=== PATIENT | female | born 1955 | race Caucasian/White ===

== ENCOUNTER 2025-05-17 10:35 | Emergency (ER) | payer MEDICARE, OTHER ==
[~2025-05-17] VITALS: Ht 162.6 cm; Wt 71.7 kg
[~2025-05-17 10:35] MED LIST: ARIMIDEX1 MG PO; BIOTIN5 MG PO; CIPROFLOXACIN750 MG PO; COLESTID1 GM PO; FENOFIBRATE145 MG PO; HUMALOG100 UNIT/2 SUB-Q; LAMICTAL XR200 MG PO; LANTUS100 UNITS/ SUB-Q; LYRICA200 MG PO; METRONIDAZOLE500 MG PO; NEXIUM40 MG PO; OXYCODONE HCL5 M1 PO; ROPINIROLE HCL1 MG PO; VENLAFAXINE HC225 MG PO; VITAMIN B122500 MCG PO
--- OUTSIDE RECORDS SUMMARY | 2025-05-17 10:42 | XMS ---
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 Harjeet has no Care Guidelines for this patient. Shahida VISIT COUNT (12 MO.) 3 [facility] 2 [facility] 1 Lise Campa TOTAL 6 NOTE: Visits indicate total known visits. ED/C VISIT TRACKING (12 MO.) 05/17/2025 10:36 [facility] Maycol Miguel [place] TYPE: Emergency COMPLAINT: - BACK PAIN 05/09/2025 07:16 [facility] Andre TYPE: Emergency COMPLAINT: - LT FOOT PAIN 12/23/2024 11:04 Lise CURIEL TYPE: Emergency DIAGNOSES: - Perforation of intestine (nontraumatic) - Abdominal Pain - ischemic bowel 12/23/2024 05:43 [facility] TYPE: Emergency COMPLAINT: - N/V/D, Abd Pain X 3 days DIAGNOSES: - Nausea with vomiting, unspecified - Other hallucinations 09/04/2024 08:24 [facility] TYPE: Emergency COMPLAINT: - abdominal pain DIAGNOSES: - Noninfective gastroenteritis and colitis, unspecified 08/01/2024 21:43 [facility] TYPE: Emergency COMPLAINT: - fall DIAGNOSES: - Sprain of unspecified part of left wrist and hand, initial encounter INPATIENT VISIT TRACKING (12 MO.) 05/09/2025 12:31 [facility] Andre TYPE: Medical Surgical COMPLAINT: - DIABETIC FOOT INFECTION DIAGNOSES: - Acquired absence of both cervix and uterus - Acquired absence of both cervix and uterus - Acquired absence of other specified parts of digestive tract - Acquired absence of other specified parts of digestive tract - Acquired absence of right foot - Acquired absence of right foot - Allergy status to narcotic agent - Allergy status to narcotic agent - Allergy status to other drugs, medicaments and biological substances - Allergy status to other drugs, medicaments and biological substances - Allergy status to penicillin - Allergy status to penicillin - Do not resuscitate - Do not resuscitate - Family history of diabetes mellitus - Family history of diabetes mellitus - Hypomagnesemia - Hypomagnesemia - 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 - jail (current) use of insulin - Lymphangitis - Lymphangitis - Non-pressure chronic ulcer of other part of left foot limited to breakdown of skin - Non-pressure chronic ulcer of other part of left foot limited to breakdown of skin - Other fpc (current) drug therapy - Other salvage determiner (current) drug therapy - Pain in left foot - Personal history of malignant neoplasm of breast - Personal history of malignant neoplasm of breast - Type 2 diabetes mellitus with foot ulcer - Type 2 diabetes mellitus with foot ulcer - Type 2 diabetes mellitus with foot ulcer 12/23/2024 11:04 Lise CURIEL TYPE: Medical Surgical DIAGNOSES: - Acidosis, unspecified - Perforation of intestine (nontraumatic) - Perforation of intestine (nontraumatic) - Sepsis, unspecified organism - Severe sepsis with septic shock - Unspecified abdominal pain - Vascular disorder of intestine, unspecified [email or web address]
[2025-05-17] MEDS ORDERED: TRIMETHOPRIM/SULFAMETHOXAZOLE 1 EA TAB PO ONE (12:30)
[2025-05-17] MEDS ORDERED: BACTRIM DS TAB1 EACH PO (12:31)
[2025-05-17] MEDS ORDERED: TRAMADOL HCL50 MG PO (12:40)
[2025-05-17 12:45] VITALS: BP 110/76
== END 2025-05-17 13:06 | disposition home or self-care (01) ==
LOC: ED 10:35
DX: L08.9 Local infection of the skin and subcutaneous tissue, unspecified (principal); E11.628 Type 2 diabetes mellitus with other skin complications; Z88.1 Allergy status to other antibiotic agents; Z88.5 Allergy status to narcotic agent; Z79.899 Other long term (current) drug therapy
CPT/HCPCS: 93971; 99283-25; A9270

== ENCOUNTER 2025-06-06 18:37 | Emergency (ER) | payer MEDICARE, OTHER ==
[~2025-06-06] VITALS: Ht 162.6 cm; Wt 68.8 kg
[~2025-06-06 18:37] MED LIST changes: +BACTRIM DS TAB1 EACH PO; +TRAMADOL HCL50 MG PO
--- OUTSIDE RECORDS SUMMARY | 2025-06-06 18:43 | XMS ---
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 Harjeet has no Care Guidelines for this patient. Shahida [facility] (12 MO.) [facility] [place] [address] Lise Campa TOTAL 7 NOTE: Visits indicate total known visits. ED/C VISIT TRACKING (12 MO.) 06[facility]06/2025 18:37 [facility] COMPLAINT: - STROKE SYMPTOMS 05/17/2025 10:36 [facility]ais [place] TYPE: Emergency COMPLAINT: - BACK PAIN DIAGNOSES: - Allergy status to narcotic agent - Allergy status to other antibiotic agents - Local infection of the skin and subcutaneous tissue, unspecified - Other senior living (current) drug therapy - Pain in left lower leg - Pain in left toe(s) - Type 2 diabetes mellitus with other skin complications 05/09/2025 07:16 [facility] [place] TYPE: Emergency COMPLAINT: - LT FOOT PAIN 12/23/2024 11:04 Lise CURIEL TYPE: Emergency DIAGNOSES: - Perforation of intestine (nontraumatic) - Abdominal Pain - ischemic bowel 12/23/2024:43 [facility] TYPE: Emergency COMPLAINT: - N/V/D, Abd Pain X 3 days DIAGNOSES: - Nausea with vomiting, unspecified - Other hallucinations 09/04/2024 08:24 [facility] TYPE: Emergency COMPLAINT: - abdominal pain DIAGNOSES: - Noninfective gastroenteritis and colitis, unspecified 08/01/2024 21:43 [facility] TYPE: Emergency COMPLAINT: - fall DIAGNOSES: - Sprain of unspecified part of left wrist and hand, initial encounter INPATIENT VISIT TRACKING (12 MO.) 05/09/2025 12:31 [facility] [place] TYPE: Medical Surgical COMPLAINT: - DIABETIC FOOT [...] diabetes mellitus - Hypomagnesemia - Hypomagnesemia - correction (current) use of insulin - correction (current) use of insulin - Lymphangitis - Lymphangitis - Non-pressure chronic ulcer of other part of left foot limited to breakdown of skin - Non-pressure chronic ulcer of other part of left foot limited to breakdown of skin - Other senior living (current) drug therapy - Other terminal manager (current) drug therapy - Pain in left [...] pain - Vascular disorder of intestine, unspecified [email or web address]
[2025-06-06] MEDS ORDERED: ACETAMINOPHEN 500 MG TAB PO ONE (19:00)
[2025-06-06] MEDS ORDERED: SODIUM CHLORIDE 0.9% 1,000 ML IV ONE (19:00)
[2025-06-06 19:11] LABS: BASOPHILS 0.3 % (0.1-1.2); EOSINOPHILS 0.2 % (0.7-5.8); LYMPHOCYTES 9.8 % (19.3-51.7); MCH 30.0 PG (25.6-32.2); MCHC 34.0 g/dL (32.2-35.5); MCV 88.0 fL (79.4-94.8); MONOCYTES 5.1 % (4.7-12.5); NEUTROPHILS 84.2 % (34.0-71.1); RBC 4.24 M/uL (3.93-5.22)
[2025-06-06 19:27] LABS: INR 1.11 (0.80-1.30); PROTIME 13.6 Sec (11.2-14.2)
[2025-06-06 19:30] LABS: ALT (SGPT) 23.0 U/L (14-59); AST (SGOT) 37.0 U/L (15-37); GLOMERULAR FILTRATION RATE,EST 37.0 mL/min (>60); PROTEIN, TOTAL 8.1 g/dL (6.4-8.2); UREA NITROGEN 30.0 mg/dL (7-18)
[2025-06-06 19:44] LABS: LACTIC ACID, BLOOD 2.3 mmol/L (0.4-2.0)
[2025-06-06 20:02] LABS: CORONAVIRUS COVID-19 AG NEGATIVE (NEGATIVE)
[2025-06-06 20:23] LABS: BLOOD/HGB, URINE LARGE (Negative); KETONE, URINE NEGATIVE (Negative); LEUK ESTERASE, URINE MODERATE (negative); NITRITE, URINE NEGATIVE (negative)
[2025-06-06 20:33] LABS: BACTERIA, URINE 3+ /hpf (negative); CASTS, URINE NONE SEEN \\lpf; CRYSTALS, URINE NONE SEEN (0-1+); REFLEX CULTURE, URINE No (No)
[2025-06-06 20:44] LABS: LACTIC ACID, BLOOD 0.9 mmol/L (0.4-2.0)
[2025-06-06] MEDS ORDERED: IBUPROFEN 600 MG TAB PO ONE (22:00)
[2025-06-06] MEDS ORDERED: CEFDINIR300 MG PO (22:33)
[2025-06-06] MEDS ORDERED: CEFDINIR 300 MG HOME.PACK PO ONE (22:45)
[2025-06-06 23:40] VITALS: BP 107/51
[2025-06-07] MEDS ORDERED: OXYCODONE HCL5 M3 PO (08:41)
[2025-06-07] MEDS ORDERED: CIPROFLOX-DEXA7.5 ML AS (08:52)
== END 2025-06-06 23:41 | disposition home or self-care (01) ==
LOC: ED 18:37
PROVIDERS: Emergency Medicine
DX: N39.0 Urinary tract infection, site not specified (principal); E11.621 Type 2 diabetes mellitus with foot ulcer; L97.529 Non-pressure chronic ulcer of other part of left foot with unspecified severity; Z88.0 Allergy status to penicillin; Z88.1 Allergy status to other antibiotic agents; Z88.5 Allergy status to narcotic agent; Z88.8 Allergy status to other drugs, medicaments and biological substances; Z79.4 Long term (current) use of insulin; Z79.899 Other long term (current) drug therapy
CPT/HCPCS: 36415; 71045; 80053; 81001; 83605; 85025; 85610; 85730; 87040; 87077; 87186; 96365; 99285-25; A9270; J0696; J7030

== ENCOUNTER 2025-06-07 06:35 | Inpatient (IN) | payer MEDICARE, OTHER ==
[2025-06-07] VITALS (7 sets, daily range): BP systolic 95–137; BP diastolic 49–79
[~2025-06-07] VITALS: Ht 162.6 cm; Wt 70.6 kg
[~2025-06-07 06:35] MED LIST changes: +CEFDINIR300 MG PO
--- OUTSIDE RECORDS SUMMARY | 2025-06-07 06:42 | XMS ---
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 Harjeet has no Care Guidelines for this patient. Shahida VISIT COUNT (12 MO.) 4 [place] [address] Lise Campa TOTAL 8 NOTE: Visits indicate total known visits. ED/C VISIT TRACKING (12 MO.) [facility] COMPLAINT: - WEAKNESS 06/06/2025 18:37 [facility] [place] TYPE: Emergency COMPLAINT: - STROKE SYMPTOMS 05/17/2025 10:36 [facility] [place] TYPE: Emergency COMPLAINT: - BACK PAIN DIAGNOSES: - Allergy status to narcotic agent - Allergy status to other antibiotic agents - Local infection of the skin and subcutaneous tissue, unspecified - Other rodent exterminator (current) drug therapy - Pain in left lower leg - Pain in left toe(s) - Type 2 diabetes mellitus with other skin complications 05/09/2025 07:16 [facility] [place] TYPE: Emergency COMPLAINT: - LT FOOT PAIN 12/23/2024 11:04 Lise CURIEL TYPE: Emergency DIAGNOSES: - Perforation of intestine (nontraumatic) - Abdominal Pain - ischemic bowel 12/23/2024 05:43 [facility] TYPE: Emergency COMPLAINT: - N/V/D, Abd Pain X 3 days DIAGNOSES: - Nausea with vomiting, unspecified - Other hallucinations 09/04/2024 08:24 [facility] TYPE: Emergency COMPLAINT: - abdominal pain DIAGNOSES: - Noninfective gastroenteritis and colitis, unspecified 08/01/2024 21:43 [facility] TYPE: Emergency COMPLAINT: - fall DIAGNOSES: [...] diabetes mellitus - Hypomagnesemia - Hypomagnesemia - long term (current) use of insulin - assisted (current) use of insulin - Lymphangitis - Lymphangitis - Non-pressure chronic ulcer of other part of left foot limited to breakdown of skin - Non-pressure chronic ulcer of other part of left foot limited to breakdown of skin - Other rodent exterminator (current) drug therapy - Other care home (current) drug therapy - Pain in left [...] pain - Vascular disorder of intestine, unspecified [email or web address]
[2025-06-07] MEDS ORDERED: LACTATED RINGER'S 1,000 ML IV ONE (06:45)
[2025-06-07] MEDS ORDERED: PROCHLORPERAZINE EDISYLATE 10 MG/2 ML VIAL IV ONE (07:00)
[2025-06-07 07:06] LABS: BASOPHILS 0.3 % (0.1-1.2); EOSINOPHILS 0.3 % (0.7-5.8); LYMPHOCYTES 2.2 % (19.3-51.7); MCH 29.9 PG (25.6-32.2); MCHC 34.1 g/dL (32.2-35.5); MCV 87.6 fL (79.4-94.8); MONOCYTES 3.7 % (4.7-12.5); NEUTROPHILS 93.0 % (34.0-71.1); RBC 3.88 M/uL (3.93-5.22)
[2025-06-07 07:35] LABS: ALT (SGPT) 23.0 U/L (14-59); AST (SGOT) 46.0 U/L (15-37); GLOMERULAR FILTRATION RATE,EST 39.0 mL/min (>60); PROTEIN, TOTAL 7.2 g/dL (6.4-8.2); UREA NITROGEN 26.0 mg/dL (7-18)
[2025-06-07 07:36] LABS: TSH, 3RD GENERATION 2.295 uIU/mL (0.358-3.740)
[2025-06-07] MEDS ORDERED: MAGNESIUM OXIDE 400 MG TABLET PO ONE (08:00)
[2025-06-07] MEDS ORDERED: MAGNESIUM SULFATE 2 GM/50 ML BAG IV ONE (08:00)
[2025-06-07] MEDS ORDERED: POTASSIUM CHLORIDE 10 MEQ TABCR PO ONE (08:00)
[2025-06-07] MEDS ORDERED: OXYCODONE HCL5 M3 PO (08:41)
[2025-06-07] MEDS ORDERED: CIPROFLOX-DEXA7.5 ML AS (08:52)
[2025-06-07] MEDS ORDERED: ACETAMINOPHEN 325 MG TAB PO PRN (10:00)
[2025-06-07] MEDS ORDERED: OXYCODONE HCL 5 MG TAB PO PRN (10:00)
[2025-06-07] MEDS ORDERED: SODIUM CHLORIDE 0.9% 1,000 ML IV SCH (10:00)
[2025-06-07] MEDS ORDERED: PANTOPRAZOLE SODIUM 40 MG TABEC PO SCH (10:07)
[2025-06-07] MEDS ORDERED: PROCHLORPERAZINE EDISYLATE 10 MG/2 ML VIAL IV PRN (11:00)
--- NOTE | 2025-06-07 11:39 | NUR ---
REPORT RECEIVED FROM MELBA GALAVIZ AT THE BEDSIDE.
[2025-06-07] MEDS ORDERED: IBLOOD GLUCOSE TEST STRIP 1 EA TEST VI SCH (12:00)
[2025-06-07] MEDS ORDERED: PHARMACY RENAL DOSE ADJUSTMENT 1 DOSE MISC PO SCH (12:00)
[2025-06-07] MEDS ORDERED: INSULIN LISPRO 100 UNIT/ML ML SUB-Q SCH (12:00)
--- NOTE | 2025-06-07 13:21 | NUR ---
PATIENT IS LYING IN BED WITH EYES OPEN AND RESPIRATIONS ARE EVEN AND UNLABORED. VITAL SIGNS AND INTAKE AND OUTPUT VALUES TAKEN AND DOCUMENTED IN THE CHART. ADMISSION AND FULL ASSESSMENT COMPLETE. PATIENT IS ALERT AND ORIENTED TIMES FOUR. PATIENT IS ON TELEMETRY NUMBER 9 AND IN SINUS RHYTHM. CARDIAC WITH NORMAL S1 AND S2 ON AUSCULTATION. PATIENT REPORTS NUMBNESS AND TINGLING IN THE BILATERAL FEET AT BASELINE. PATIENT IS ON ROOM AIR AND LUNG SOUNDS ARE CLEAR THROUGHOUT. PATIENT REPORTS SOME NAUSEA BUT IS NOT REQUESTING ANYTHING FOR IT. BOWEL TONES ARE ACTIVE IN ALL FOUR QUADRANTS. ABDOMEN IS MILDLY DISTENTDED AND TENDER TO PALPATION. IV SITE IS CLEAN, DRY, AND INTACT. NS IS INFUSING AT 125 ML/HR. LEFT GREAT TOE DIABETIC FOOT ULCER NOTED. PICTURES ARE IN THE CHART. PATIENT REPORTS PAIN IN THE LOWER ABDOMEN BUT IS NOT REQUESTING ANYTHING FOR IT. PATIENT STATED NO FURTHER NEEDS AT THIS TIME. CALL LIGHT AND PERSONAL BELONGINGS ARE WITHIN REACH.
--- NOTE | 2025-06-07 14:11 | NUR ---
NOTIFIED OF A REPEAT HEMOGLOBIN A1C BEING ORDERED. STATED TO D/C THAT ORDER. THIS RN ASKED MD IF HE WANTS TO GET REPEAT TROPONINS. MD STATED TO GET A FEW EVERY 3 HOURS APART. LAB ORDERS PUT IN BY THIS RN. NO FURTHER ORDERS AT THIS TIME. CALL ENDED.
--- NOTE | 2025-06-07 14:16 | NUR ---
LAB IS IN THE ROOM AT THIS TIME.
[2025-06-07] MEDS ORDERED: ROPINIROLE HCL 1 MG TAB PO SCH (15:00)
--- NOTE | 2025-06-07 16:06 | NUR ---
PATIENT IS LYING IN BED ON HER LEFT SIDE WITH EYES CLOSED AND RESPIRATIONS ARE EVEN AND UNLABORED. CALL LIGHT AND PERSONAL BELONGINGS ARE WITHIN REACH.
--- NOTE | 2025-06-07 16:53 | NUR ---
PATIENT AMBULATED TO THE BATHROOM WITH SBA. PATIENT VOIDED 700 ML TEA COLORED URINE. PATIENT THEN AMBULATED TO THE CHAIR AND TOLERATED WELL. 1700 MEDICATIONS ADMINISTERED PER THE EMAR. PATIENT IS SET UP IN THE CHAIR AND EATING DINNER. NEW BED LINENS CHANGED AT THIS TIME. NEW GOWN IN PLACE DUE TO PATIENT REPORTINGBEING "SWEATY" AFTER WAKING UP FROM NAP. ORAL TEMP IS 97.3F. PATIENT STATED NO FURTHER NEEDS AT THIS TIME. CALL LIGHT AND PERSONAL BELONGINGS ARE WITHIN REACH.
--- NOTE | 2025-06-07 18:01 | NUR ---
PATIENT IS LYING IN BED WITH HOB ELEVATED. PATIENT WITH EYES OPEN AND RESPIRATIONS ARE EVEN AND UNLABORED. CALL LIGHT AND PERSONAL BELONGINGS ARE WITHIN REACH. TV IS ON.
--- NOTE | 2025-06-07 19:28 | NUR ---
REPORT RECEIVED FROM DAY SHIFT RN. PT LYING IN BED ALERT AND ORIENTED. NEW BAG IVF INFUSING PER ORDER. PT REPORTS LEFT SIDE ABD PAIN 05/29. PT REPORTS CHRONIC FOR "SEVERAL YEARS AFTER I EAT." PRN FOR PAIN ADMIN PER EMAR. NO FURTHER NEEDS. WHTIE BOARD UPDATED. CALL LIGHT IN REACH.
--- NOTE | 2025-06-07 19:56 | NUR ---
PATIENT'S CALL LIGHT ANSWERED. PATIENT ASKED FOR CHAMOMILE TEA. PROVIDED. WATER WITHOUT ICE REFILLED.
--- NOTE | 2025-06-07 20:34 | EKG ---
[facility] [address] [facility] [place] [address] Signed Normal sinus rhythm Normal ECG No previous ECGs available Confirmed by Jamar Dunbar MD () on 06/07/2025 8:34:11 PM Electronically Signed By: JAMAR DUNBAR MD 06/07/252033 PATIENT NAME: MEGAN GONZALEZ Electrocardiogram DATE OF : 57 PHYSICIAN: JAMAR DUNBAR MD REPORT #: [id number] REPORT IS CONFIDENTIAL AND NOT TO BE RELEASED WITHOUT AUTHORIZATION
--- NOTE | 2025-06-07 20:49 | NUR ---
EVENING ASSESSMENT COMPLETE. SCHEDULED MEDS ADMIN PER EMAR. PT REPORTS SOB. SpO2 100% ON RA. RESPIRATIONS EVEN. EXP WHEEZE AUSCULTATED. PT ALSO REPORTS GAS PAIN. MD NOTIFIED AND WILL ENTER ORDERS. BOWEL TONES ACTIVE. PT REPORTS FLATUS. LAST BM SUNDAY MORNING THAT WAS LIKE "TOOTHPASTE." VS AND I&O OBTAINED. NO FURTHER NEEDS AT THIS TIME. CALL LIGHT IN REACH.
[2025-06-07] MEDS ORDERED: INSULIN GLARGINE-YFGN 100 UNIT/ML ML SUB-Q SCH (21:00)
[2025-06-07] MEDS ORDERED: VENLAFAXINE HCL 75 MG CAPCR PO SCH (21:00)
[2025-06-07] MEDS ORDERED: LACTOBACILLUS RHAMNOSUS GG 1 EACH CAP PO SCH (21:00)
[2025-06-07] MEDS ORDERED: lamoTRIgine 100 MG TAB PO SCH (21:00)
[2025-06-07] MEDS ORDERED: SIMETHICONE 80 MG CHEW PO PRN (21:00)
[2025-06-07] MEDS ORDERED: BUDESONIDE 0.5 MG/2 ML VIAL INH SCH (21:16)
[2025-06-07] MEDS ORDERED: ARFORMOTEROL TARTRATE 15 MCG/2 ML VIAL INH SCH (21:16)
--- NOTE | 2025-06-07 21:23 | NUR ---
PT UP TO BR WITH SBA TO VOID 650 ML CONCENTRATED URINE. GAIT WEAK. BACK TO BED, SAMRA WELL. REPORTS SOB WITH AMBULATION. SpO2 92% ON RETURN TO BED. HR 90'S. HOB ELEVATED. NO FURTHER NEEDS. CALL LIGHT IN REACH.
[2025-06-07] MEDS ORDERED: ALBUTEROL SULFATE 0.083% 3 ML VIAL INH PRN (21:30)
--- NOTE | 2025-06-07 21:37 | NUR ---
MEGAN STATES THAT SHE HAS SMOKED OVER 40 YEARS ON AND OFF. SHE DOES NOT HAVE NEBULIZED BREATHING TREATMENTS, BUT HER BREATH SOUNDS ARE BETTER POST TREATMENT AND SHE STATED THAT SHE FEELS LIKE SHE CAN BREATH BETTER. PRIO TO DISCHARGE, MEGAN WOULD BENEFIT FROM HAVING A HOME NEBULIZER WITH BROVANA BID AND PULMICORT 0.5MG BID WITH ALBUTEROL Q2 PRN.
--- NOTE | 2025-06-07 23:26 | NUR ---
CALL LIGHT ANSWERED. ICE WATER PROVIDED PER REQUEST. SpO2 95% ON RA. TELE #9. SR. HR 90'S.
[2025-06-08] VITALS (12 sets, daily range): BP systolic 121–141; BP diastolic 53–79
--- NOTE | 2025-06-08 00:39 | NUR ---
PT UP TO BR WITH SBA TO VOID. GAIT SHAKY AND UNSTEADY. PT ABLE TO DO OWN MICHAEL CARE. BACK TO BED. VS AND I&O OBTAINED. NO FURTHER NEEDS. CALL LIGHT IN REACH.
--- NOTE | 2025-06-08 02:25 | NUR ---
CALL LIGHT ANSWERED. PT REPORTS NAUSEA AND RIGHT LOWER ABD PAIN. PRN FOR PAIN AND N/V ADMIN PER EMAR. PT DIAPHORETIC. BLOOD SUGAR 108. EXTRA BLANKETS REMOVED. FRESH WATER PROVIDED. NO FURTHER NEEDS. CALL LIGHT IN REACH. BED ALARM FOR SAFETY.
--- NOTE | 2025-06-08 05:13 | NUR ---
PT AWAKE IN BED. NO C/O PAIN OR NAUSEA. PT PASSING LARGE AMOUNTS OF FLATUS. UP TO BR TO ATTEMPT TO VOID WITH FWW AND SBA WITH NO RESULTS. BACK TO BED, SAMRA WELL. GAIT STEADINESS IMPROVED FROM LAST TRANSFER. VS AND I&O OBTAINED. COFFEE PROVIDED PER REQUEST. NO FURTHER NEEDS. CALL LIGHT IN REACH.
[2025-06-08 05:30] LABS: BASOPHILS 0.2 % (0.1-1.2); EOSINOPHILS 1.5 % (0.7-5.8); LYMPHOCYTES 8.0 % (19.3-51.7); MCH 29.6 PG (25.6-32.2); MCHC 33.6 g/dL (32.2-35.5); MCV 88.1 fL (79.4-94.8); MONOCYTES 4.9 % (4.7-12.5); NEUTROPHILS 84.9 % (34.0-71.1); RBC 3.28 M/uL (3.93-5.22)
[2025-06-08 05:44] LABS: GLOMERULAR FILTRATION RATE,EST 66.0 mL/min (>60); PHOSPHORUS, INORGANIC 2.4 mg/dL (2.5-4.9); UREA NITROGEN 17.0 mg/dL (7-18)
--- NOTE | 2025-06-08 07:25 | NUR ---
PT AWAKE RESTING QUIET AT TIME OF SHIFT REPORT, STATES SHE DID NOT SLEEP WELL LAST NIGHT. DENIES NAUSEA, STATES HER ABDOMEN HURTS DESCRIBES IT SORE AND CRAMPY. FRESH H20 TO BEDSIDE, COFFEE PER REQUEST. CALL LIGHT AND NEEDED ITEMS IN REACH
[2025-06-08] MEDS ORDERED: MAGNESIUM SULFATE 2 GM/50 ML BAG IV SCH (08:00)
--- NOTE | 2025-06-08 08:00 | NUR ---
PATIENT CALLED TO USE BATHROOM THIS LABORER CONCRETE PLANT IN ROOM TO ASSIST. PATIENT UP TO BATHROOM THEN TO CHAIR, 1PA FWW. PATIENT DID AM CARE AND ORAL CARE AT SINK. LINENS CHANGED. RN IN ROOM AT THIS TIME. CALL LIGHT IN REACH. NO FURTHER NEEDS AT THIS TIME.
--- NOTE | 2025-06-08 08:10 | NUR ---
UR CLINICAL REVIEW: 2MN VERSALUS, DIARRHEA WITH STAS CREATININE 1.44, BUN 26, WEAKNESS, TREND LABS IV FLUIDS, EVAL FOR C.DIFF MEDICARE INPT 06/07/2025 @ 1008 ORDER MATCHES REG NO AUTH REQUIRED PER MEDICARE RULES DC PLAN PENDING FURTHER EVAL AND TREAT DC 06/09/25
--- NOTE | 2025-06-08 08:13 | NUR ---
PT UP TO TOILET SBA DOES SELF CARES THEN TO THE RECLINER. BREAKFAST IS SERVED PT AGREES SHE HAS EVERYTHING SHE NEEDS. CALL LIGHT IN LAP
[2025-06-08] MEDS ORDERED: ENOXAPARIN SODIUM 40 MG/0.4 ML SYR SUB-Q SCH (09:00)
--- NOTE | 2025-06-08 09:07 | NUR ---
PT EATS ONLY BITES OF MORING MEAL STATES HER APPETITE HAS NOT BEEN GOOD. DENIES NAUSEA. PT IS VERY TALKATIVE AND UP BEAT, VISITING CONSISTANTLY WHILE THIS CONVENTION MANAGER IS IN THE ROOM. REVIEWED MORNING MEDS WITH PT, SHE DOES NOT REQUEST ANYTHING FURTHER. CONTINUES IN THE CHAIR WATCHING TV. PT NOTIFIED OF NEED FOR A URINE SAMPLE AGREES TO PROVIDE THIS LATER. SHE HAS NOT HAD A BM SINCE ADMISSION, NO SAMPLE COLLECTED. NOC/RN REPORTS PT C/O CONSTIPATION WANTING A LAXATIVE, SHE ENCOURAGED HER TO SPEAK WITH MD ABOUT THIS. PT REPORTS SHE HAS IBS AND FREQUENT BOWEL ISSUES. C/O OF GAS PAINS THIS MORNING ENCOURAGED PT TO AMBULATE THE HALLS SHE STATES "IT'S PASSING."
[2025-06-08] MEDS ORDERED: LYRICA200 MG PO (09:24)
--- NOTE | 2025-06-08 09:24 | NUR ---
MED REC COMPLETE
--- NOTE | 2025-06-08 09:39 | NUR ---
INTO SEE PATIENT. PERSONAL HEALTH INFORMATION REVIEWED. PATIENT LIVES IN A HOME WITH HER BOYFRIEND. 2 STEPS INTO THE HOME. DENIES DIFFCULTY DOING THEM. PATIENT DOES NOT HAVE DME AT HOME. DOES NOT DRIVE. PATIENT BOYFRIEND DOES ALL THE DRIVING. DENIES ANY DIFFCULTY PAYING UTLITIES OR OBTAINING FOOD. NO FUTHER CM NEEDS.
--- NOTE | 2025-06-08 09:46 | NUR ---
PATIENT UP TO BATHROOM THEN TO BED, 1PA FWW. PATIENT REFUSED SHOWER. BED BATH GIVEN WHILE IN BATHROOM. PATIENT REFUSED SHOWER CAP. NEW DEPENDS AND GOWN PROVIDED. PATIENT NOW IN BED RESTING. VITALS AND I&O'S DONE AND CHARTED. CALL LIGHT IN REACH. NO FURHTER NEEDS AT THIS TIME.
--- NOTE | 2025-06-08 10:06 | NUR ---
DR DUNBAR IN TO SEE PT PLAN OF CARE DISCUSSED AND ALL QUESTIONS ANSWERED. WOUND ON TOE EXAMINED THEN REDRESSED. PT HAS RETURNED TO BED DECLINES FUTHER TIME IN THE CHAIR. CALL LIGHT AND NEEDED ITEMS IN REACH
--- NOTE | 2025-06-08 10:53 | NUR ---
P/T IN TO WORK WITH PT
[2025-06-08] MEDS ORDERED: CIPROFLOXACIN HCL/DEXAMETH 7.5 ML HOME.PACK OTIC SCH (11:08)
--- NOTE | 2025-06-08 12:20 | NUR ---
P/T WELL TOLERATED, PT REMAINS IN THE CHAIR FOR A TIME AFTERWARD. RETURNS TO BED C/O LOW BACK PAIN 06/29 OXY ADMINISTERED PER REQUEST. PT RESTING IN BED NOON MEAL SERVED BOYFRIEND AT BEDSIDE AGREES PAIN MED IS "WORKING" DENIES FURTHER NEEDS AT THIS TIME
--- NOTE | 2025-06-08 13:57 | NUR ---
XRAY IN FOR KUB, PT CONTINUES IN BED. BLINDS PULLED PER HER REQUEST.
--- NOTE | 2025-06-08 14:17 | NUR ---
PATIENT IN BED RESTING AT THIS TIME. VITALS AND I&O'S DONE AND CHARTED. CALL LIGHT IN REACH. NO FURTHER NEEDS AT THIS TIME.
[2025-06-08 14:21] LABS: BLOOD/HGB, URINE LARGE (Negative); KETONE, URINE NEGATIVE (Negative); LEUK ESTERASE, URINE TRACE (negative); NITRITE, URINE NEGATIVE (negative)
[2025-06-08 14:30] LABS: BACTERIA, URINE RARE /hpf (negative); CASTS, URINE NONE SEEN \\lpf; CRYSTALS, URINE NONE SEEN (0-1+); EPITHELIAL CELLS, URINE SQUAMOUS 3+ /lpf (0-1+); REFLEX CULTURE, URINE No (No)
[2025-06-08] MEDS ORDERED: PREGABALIN 50 MG CAP PO SCH (15:00)
--- NOTE | 2025-06-08 15:02 | NUR ---
PT RESTING SUPINE, DENIES HAVING BEEN ABLE TO NAP. WATCHING TV AT THIS TIME NO REQUESTS NO C/O
--- NOTE | 2025-06-08 16:20 | NUR ---
SPOKE WITH DR DUNBAR R/T SATINDER RESULTS ORDERS TO FOLLOW
[2025-06-08] MEDS ORDERED: POLYETHYLENE GLYCOL 3350 1 PACKET PO SCH (16:39)
--- NOTE | 2025-06-08 17:09 | NUR ---
PT AMBULATES TO THE TOILET REFUSES CHAIR MOVES BACK TO THE BED. EVENING MEAL SERVED. DR DUNBAR IN EARLIER TO SPEAK WITH HER ABOUT KUB RESULTS AND HER PREFERRED TREATMENT FOR CONSTIPATION. MEDS ADMINISTERED
--- NOTE | 2025-06-08 17:45 | NUR ---
PATIENT SITTING UP IN BED AT THIS TIME. VITALS AND I&O'S DONE AND CHARTED. HIGH TEMP. REPORTED TO RN. CALL LIGHT IN REACH. NO FURTHER NEEDS AT THIS TIME.
--- NOTE | 2025-06-08 18:26 | NUR ---
PT RESTING IN BED WATCHING TV HAS A LOW GRADE TEMP. PT WRAPPED IN WARM BLANKET EARLIER ROOM TEMP INCREASED. HAD PT USE I/S THEN RETESTED TEMP CONTINUES TO BE LOW GRADE AT 100.3
[2025-06-08] MEDS ORDERED: ANASTROZOLE 1 MG TAB PO SCH (21:00)
[2025-06-08] MEDS ORDERED: SENNOSIDES/DOCUSATE 1 EA TAB PO SCH (21:00)
--- NOTE | 2025-06-08 21:45 | NUR ---
SBA USING WALKER PATIENT UP TO THE BATHROOM TO VOID 250ML DARK URINE. PATIENT IS BACK IN BED. NO FURTHER NEEDS AT THIS TIME. BED ALARM ACTIVATED FOR SAFETY. CALL LIGHT AND SIDE TABLE WITHIN REACH.
[2025-06-08] MEDS ORDERED: CEFEPIME HCL 2 GM in SODIUM CHLORIDE 0.9% 100 ML IV SCH (22:13)
--- NOTE | 2025-06-08 23:10 | NUR ---
CALL LIGHT ANSWERED, pt REPORTS FEELING SWEATY AND REQUESTING NEW GOWN. NEW GOWN PROVIDED ALONG WITH WASH CLOTH. TEMP WNL-98.6. pt REPORTS THIS "HAPPENS AT HOME TOO". pt's OWN BLOOD SUGAR READING 160'S PER pt. NO ADDITIONAL NEEDS OR CONCERNS, CALL LIGHT IN REACH.
--- NOTE | 2025-06-08 23:35 | NUR ---
SCHEDULED MED PROVIDED. IV WNL, IV FLUIDS AND MED INFUSING PER ORDER . LATHE SPOTTER IN ROOM TO PROVIDE CARES.
--- NOTE | 2025-06-08 23:40 | NUR ---
PATIENT SPILLED TEA ON HER GOWN, BED AND ROBE. NEW GOWN PROVIDED. WHOLE BED LINE CHANGED. PATIENT IS BACK IN BED. NO OTHER NEEDS AT THIS TIME. BED ALARM ON FOR SAFETY. WARM BLANKET PROVIDED.
[2025-06-09] VITALS (7 sets, daily range): BP systolic 135–156; BP diastolic 61–68
--- NOTE | 2025-06-09 01:03 | NUR ---
CALL LIGHT ANSWERED. PT UP TO BR WITH FWW AND SBA TO VOID. PT ABLE TO DO OWN MICHAEL CARE. BACK TO BED. NO FURTHER NEEDS. BED ALARM FOR SAFETY. CALL LIGHT IN REACH.
--- NOTE | 2025-06-09 02:45 | NUR ---
PT RESTING IN BED WITH EYES CLOSED. RESPIRATIONS EVEN. VITAL SIGNS HELD AT THIS TO ALLOW FOR REST. SpO2 93% ON RA. HR 80'S. BED ALARM IN PLACE. CALL LIGHT IN REACH.
--- NOTE | 2025-06-09 03:45 | NUR ---
PATIENT CALLED TO USE THE RESTROOM. PATIENT VOIDED 200ML DARK URINE AND WET PULL UPS. FRESH UNDERWEAR PROVIDED. PATIENT IS BACK IN BED. PATIENT REQUESTED BREATHING TREATMENT. RT WAS CALLED. BED ALARM ON FOR SAFETY. CALL LIGHT WITHIN REACH.
--- NOTE | 2025-06-09 05:40 | NUR ---
SBA TO THE BATHROOM AND BACK TO BED. CHANGED GOWN DUE TO WET WITH SWEAT. WARM WASH CLOTH PROVIDED TO WIPE UPPER BODY, HEAD/HAIR AND FACE. DEODORANT AND HAIR BRUSH PROVIDED. V/S AND I&O'S COMPLETED. ICE WATER AND DIET SODA PROVIDED PER PATIENT. BED ALARM ON FOR SAFETY.
--- NOTE | 2025-06-09 06:00 | NUR ---
IN ROOM TO HANG NEW BAG IV FLUIDS, UNABLE TO FLUSH IV SITE. PRIMARY RN AIRAM IN ROOM AND ABLE TO FLUSH IV AFTER REPLACING EXTENSION SET AND DRESSING. SITE WNL, NEW BAG IV FLUIDS HUNG AND INFUSING DIRECTED. CALL LIGHT IN REACH, NO ADDITIONAL NEEDS OR CONCERNS.
--- NOTE | 2025-06-09 06:24 | NUR ---
PT STATES SHE HAS 7/10 GENERALIZED PAIN, PRN PAIN MED PROVIDED. PT STATES NO OTHER NEEDS. CALL LIGHT IN REACH.
--- NOTE | 2025-06-09 07:13 | NUR ---
VERBAL REPORT RECIEVED BY MELBA ALEGRIA. PATIENT AWAKE IN BED REQUESTING TO AMBULATE HALLWAY AND COFFEE, JORDEN CHOI IN ROOM AT THIS TIME. NO FURTHER NEEDS AT THIS TIME.
[2025-06-09 08:10] LABS: BASOPHILS 0.3 % (0.1-1.2); EOSINOPHILS 2.6 % (0.7-5.8); LYMPHOCYTES 8.5 % (19.3-51.7); MCH 29.6 PG (25.6-32.2); MCHC 33.1 g/dL (32.2-35.5); MCV 89.3 fL (79.4-94.8); MONOCYTES 6.8 % (4.7-12.5); NEUTROPHILS 81.2 % (34.0-71.1); RBC 3.45 M/uL (3.93-5.22)
[2025-06-09 08:27] LABS: GLOMERULAR FILTRATION RATE,EST 73.0 mL/min (>60); UREA NITROGEN 10.0 mg/dL (7-18)
--- NOTE | 2025-06-09 10:13 | NUR ---
IN THE ROOM WITH PATIENT. FULL ASSESSMENT COMPLETE. OCCUPATIONAL THERAPY IN THE ROOM WITH PATIENT. PATIENT COMPLAINS OF 7/10 ABD PAIN, PATIENT REFUSED TYELNOL PATIENT STATES "TYLENOL MAKES MY BS HIGH AND NORCO HAS A LOWER AMOUNT OF TYELNOL IN IT THAT IT DOESNT BAD." WHEN DISCUSSING OTHER PAIN MEDICATION OPTIONS PATIENT STATES "IBUPROFEN VICENTE A HOLE IN MY STOMACH AND TORDOL IS LIKE THROWING A BB AT A [employer] TRAIN." CALL LIGHT IN REACH. NO FURTHER NEEDS AT THIS TIME.
[2025-06-09] MEDS ORDERED: POLYETHYLENE GLYCOL 3350 1 PACKET PO SCH (10:30)
--- NOTE | 2025-06-09 11:25 | NUR ---
INFORMED BY THERAPIES THAT PATIENT WOULD BENEFIT FROM EITHER HOME HEALTH PT/OT OR OUTPATIENT PT/OT. SPOKE WITH PATIENT. SHE IS ABLE TO LEAVE HOME BUT REFUSES OUTPATIENT THERAPIES AT THIS TIME. NO OTHER CM NEEDS NOTED.
--- NOTE | 2025-06-09 12:19 | NUR ---
PATIENT SITTING UP IN BED EATING LUNCH AT THIS TIME. PATIENT REQUESTS ICE TEA, DIETARY NOTIFIED. CALL LIGHT IN REACH. NO FURTHER NEEDS AT THIS TIME.
--- NOTE | 2025-06-09 14:29 | NUR ---
PATIENT RESTING IN BED EYES CLOSED, BREATHING EVEN AND UNLABORED. CALL LIGHT IN REACH. NO NEEDS AT THIS TIME.
--- NOTE | 2025-06-09 15:42 | NUR ---
FOCUSED ASSESSMENT COMPLETE. PATIENT HAS MODERATE DISTENTION, BOWEL SOUNDS ARE ACTIVE IN ALL FOUR QUADRANTS. PATIENT COMPLAINS OF ABD TENDERNESS, PATIENT REPOSITIONED FOR COMFORT. DENIES NAUSEA AT THIS TIME. PATIENT DENIES ANY NEEDS AT THIS TIME. CALL LIGHT IN REACH.
--- NOTE | 2025-06-09 16:28 | NUR ---
WE PLANNED ON GIVING PATIENT A SHOWER TODAY. BUT PATIENT IS TOO TIRED SO WE WILL TRY TOMORROW.
--- NOTE | 2025-06-09 16:45 | NUR ---
WOUND CARE CONSULTED FOR WOUND TO LEFT FIRST TOE. HISTORY OF PRESENT ILLNESS: PT IS A 70 YEAR OLD FEMALE ADMITTED ON 06/07/25 FOR DIARRHEA. BLOOD CULTURES ARE POSITIVE FOR E.COLI. SUSPECTED SOURCE OF INFECTION IS A CHRONIC WOUND TO THE LEFT FIRST TOE. THE WOUND HAS BEEN MANAGED BY PODIATRY, DR. SHIELDS, AN OUTPATIENT. DR. SHIELDS IS AWARE OF THE PATIENT S CURRENT ADMISSION AND HAS BEEN CONSULTED BY DR. DUNBAR. WOUND CARE CONSULTED WITH NOTED RECOMMENDATION FROM DR. SHIELDS TO USE IODOSORB. PT REPORTS WOUND IS APPROXIMATELY 1 MONTH OLD. STATES IT STARTED A BLISTER WHICH SHE POPPED AND THEN BECAME A WOUND. SHE WHEN SOUGHT HELP FROM DR. SHIELDS. UPON ASSESSMENT PT STATES, I M ALLERGIC TO BETADINE, I GET BLISTERS AND HIVES. IODOSORB OMITTED FROM CARE PLAN. PAST MEDICAL HISTORY: DM II, HTN, RIGHT TMA. ALLERGIES:INSECT EXTRACTS, ZOFRAN, VENOM-WASP, ADHESIVE TAPE, IODINE. WOUND ASSESSMENT: LEFT FIRST TOE, ETIOLOGY SUSPECTED NEUROPATHIC ULCER. CLASSIFICATION: NEUROPATHIC ULCER, CHAPA GRADE 3, DEEP INFECTED ULCER SIZE: 2.5 CM X 1.2 CM X 0.2 CM WOUND BASE: 90% YELLOW ADHERENT SLOUGH/BIOFILM, 10% PINK, MOIST, NON-GRANULAR TISSUE. EDGES: HYPERKERATOTIC , THICKENED WITH CALLUS IN PERIWOUND. EXUDATE: Serosanguineous SMALL AMOUNT. MICHAEL WOUND SKIN: INTACT SHAAN DRY COOL LLE ASSESSMENT: DP PULSE PALPABLE, STRONG PALE, HAIR LOSS NOTED. DOLL SURGEON LESS THAN 3 SECONDS. LOSS R/T DM NEUROPATHY PAIN TO LIGHT TOUCH AT ANKLE UP TO CALF. PICTURES OBTAINED, SEE PAPER CHART. WOUND CULTURE OBTAINED. PROCEDURE: DRESSING IN PLACE REMOVED. WOUND CLEANSED WITH NS AND PATTED DRY. WOUND CULTURE OBTAINED. VASHE SOAK APPLIED AND ALLOWED TO DWELL X10 MINUTES. WOUND PATTED DRY. HYDROFERA BLUE CUT TO FIT WOUND BASE, FOLLOWED BY PLAIN FOAM. DRESSING SECURED WITH GAUZE ROLL AND COBAN. PT TOLERATED WELL. TREATMENT RECOMMENDATIONS: LEFT FIRST TOE APPLY VASHE SOAK TO WOUND BED AND ALLOW TO DWELL X10 MINUTES. PAT DRY. CUT HYDROFERA BLUE TO FIT WOUND BASE AND APPLY WITH SHINY SIDE UP. COVER WITH PLAIN FOAM AND SECURE WITH GAUZE ROLL AND COBAN. CHANGE DRESSING EVERY OTHER DAY AND NEEDED. RECOMMEND LEFT FOOT X-RAY TO RULE OUT OSTOMYLITIS. RECOMMEND DOPPLER US FOR LEFT CALF PAIN TO RULE OUT DVT. FOLLOW UP WITH PODIATRY. PT COULD BENEFIT FROM CALLUS REMOVAL. RECOMMEND SANJEEV PRIOR TO CONSIDERING SHARP DEBRIDEMENT. DR. DUNBAR NOIFIED. GOALS: HEAL. KEEP WOUND CLEAN, PREVENT BIOFILM, DECREASE TOPICAL BIOBURDEN, PROMOTE A MOIST WOUND HEALING ENVIRONMENT.
--- NOTE | 2025-06-09 17:21 | NUR ---
PATIENT COMPLAINS OF 10/10 ABD PAIN, PRN PAIN MEDICATION GIVEN (SEE EMAR). VSS FOR PATIENT BASELINE. CPOX AT BEDSIDE SPO2 94%, PULSE 91. PATIENT ON 2L NC, RESPS ARE 12 BPM, BREATHING EVEN AND UNLABORED. LAP SITES X 3 WELL APRROXIMATED. SERSOSANGUIENOUS DRAINAGE NOTED AT THE DRAIN SITE, DRAINED 100ML OUT. ABD MODERATELY DISTENDED, HYPOACTIVE BOWEL SOUNDS IN ALL FOUR QUADRANTS. HEART RATE IRREGULAR TO PATIENT BASELINE. RESTRAINTS IN PLACE WAIST, BLE AND BUP. EOCI OFFICERS AT BEDSIDE X2. CALL LIGHT IN REACH.
--- NOTE | 2025-06-09 18:21 | NUR ---
PATIENT SITTING UP IN BED EATING BREAKFAST. ICE WATER PROVIDED PER PATIENT REQUEST. PATIENT COMPLAINS OF 9/10 ABD PAIN REQUESTING PAIN MEDICATION, PRN PAIN MEDICATION GIVEN (SEE EMAR). JORDEN BARBOSA IN THE ROOM ASSISTING PATIENT TO THE BATHROOM VIA SBA, FWW. NO FURTHER NEEDS AT THIS TIME.
--- NOTE | 2025-06-09 19:21 | NUR ---
REPORT RECEIVED FROM DAY SHIFT RN. PT LYING IN BED ALERT AND ORIENTED. DENIES NEEDS. WHITE BOARD UPDATED. CALL LIGHT IN REACH.
--- NOTE | 2025-06-09 19:45 | NUR ---
SBA PATIENT TO THE BATHROOM AND BACK TO BED. PATIENT DID PM CARE WASH FACE AND HANDS AND BRUSH TEETH. NEW PULL UPS PROVIDED. RT WAS IN THE ROOM.
[2025-06-09] MEDS ORDERED: lamoTRIgine 100 MG TAB PO SCH (21:00)
--- NOTE | 2025-06-09 21:36 | NUR ---
EVENING ASSESSMENT COMPLETE. SCHEDULED MEDS ADMIN PER EMAR. IV ABX INFUSING PER ORDER. NO C/O PAIN OR NAUSEA AT THIS TIME. IV IN RIGHT FOREARM INFILTRATED. DC'D WNL. NEW IV PLACED IN LEFT AC AFTER THREE ATTEMPTS. PT SAMRA WELL. VS AND I&O OBTAINED. PT DENIES QUESTIONS OR CONCERNS. CALL LIGHT IN REACH.
--- NOTE | 2025-06-09 23:58 | NUR ---
PATIENT UP TO THE BATHROOM TO VOID 700ML DARK URINE. PATIENT C/O NAUSEOUS. PRIMARY RN NOTIFIED. PATIENT IS BACK IN BED. CALL LIGHT AND SIDE TABLE WITHIN REACH.
[2025-06-10] VITALS (8 sets, daily range): BP systolic 136–145; BP diastolic 62–71
--- NOTE | 2025-06-10 00:40 | NUR ---
PT REPORTS NAUSEA. PRN FOR N/V ADMIN PER EMAR. NEW BAG IVF INFUSING WNL. NO FURTHER NEEDS.
--- NOTE | 2025-06-10 01:38 | NUR ---
IV ABX COMPLETE. PT RESTING WITH EYES CLOSED. SpO2 97% ON RA. HR 70'S.
--- NOTE | 2025-06-10 02:54 | NUR ---
PT IN BED RESTING WITH EYES CLOSED. RESPIRATIONS EVEN. CALL LIGHT IN REACH.
--- NOTE | 2025-06-10 03:22 | NUR ---
CALL LIGHT ANSWERED. PT UP TO BR WITH FWW AND SBA TO VOID. GAIT STEADY. BACK TO BED. NO FURTHER NEEDS. CALL LIGHT IN REACH.
[2025-06-10 05:42] LABS: MCH 29.2 PG (25.6-32.2); MCHC 33.3 g/dL (32.2-35.5); MCV 87.5 fL (79.4-94.8); RBC 3.19 M/uL (3.93-5.22)
--- NOTE | 2025-06-10 05:43 | NUR ---
LAB IN FOR MORNING DRAW. PT UP TO BR WITH FWW AND MAIL ROOM ASSIST. BACK TO BED, SAMRA WELL. PT REPORTS LOW BACK PAIN 02/26. PRN FOR PAIN ADMIN PER EMAR. NO FURTHER NEEDS. CALL LIGHT IN REACH.
[2025-06-10 05:57] LABS: EOSINOPHILS, MANUAL DIFF 8; LYMPHOCYTES, MANUAL DIFF 11; MONOCYTES, MANUAL DIFF 8; NEUTROPHILS, MANUAL DIFF 73
[2025-06-10 06:00] LABS: ALT (SGPT) 22.0 U/L (14-59); AST (SGOT) 33.0 U/L (15-37); GLOMERULAR FILTRATION RATE,EST 88.0 mL/min (>60); PROTEIN, TOTAL 6.2 g/dL (6.4-8.2); UREA NITROGEN 9.0 mg/dL (7-18)
--- NOTE | 2025-06-10 07:30 | NUR ---
RECEIVED REPORT FROM MELBA ALEGRIA. PT LAYING IN BED WITH EYE MASK, UNLABORED BREATHING. NO NEEDS AT THIS TIME, CALL LIGHT IN REACH, WHITEBOARD UPDATED. JORDEN MOORE REPORT BLOOD SUGAR IN THE 70S, PT ASSESSED, ORANGE JUICE GIVEN, NO OTHER NEEDS AT THIS TIME.
--- NOTE | 2025-06-10 07:36 | NUR ---
PATIENT IN BED AT THIS TIME. ROAD GRADER CHARTED HOURLY ROUNDS AND BLOOD SUGAR. RN SUSIE NOTIFIED OF BLOOD SUGAR. PATIENT DELCINED CHAIR AT THIS TIME BUT AGREED TO CHAIR AFTER BREAKFAST. CALL LIGHT WITHIN REACH, NO FURTHER NEEDS AT THIS TIME.
[2025-06-10] MEDS ORDERED: MAGNESIUM SULFATE 2 GM/50 ML BAG IV SCH (08:00)
[2025-06-10] MEDS ORDERED: POTASSIUM CHLORIDE 10 MEQ TABCR PO ONE (08:00)
--- NOTE | 2025-06-10 08:23 | NUR ---
PATIENT CALLED TO USE BATHROOM, THIS QUALITY PROCESS ENGINEER IN TO ASSIST. PATIENT UP TO BATHROOM THEN TO CHAIR, SBA FWW. BREAKFAST IN ROOM. CALL LIGHT IN REACH. NO FURTHER NEEDS AT THIS TIME.
--- NOTE | 2025-06-10 09:16 | NUR ---
PATIENT IN CHAIR AT THIS TIME. SOA INTEGRATION DEVELOPER CHARTED VITALS AND I&O'S. SOA INTEGRATION DEVELOPER CHANGED PATIENT LINENS. CALL LIGHT WITHIN REACH, NO FURTHER NEEDS AT THIS TIME.
--- NOTE | 2025-06-10 11:11 | NUR ---
ALERT AND ORIENTED IN RECLINER. DISCUSSED OUTPATIENT PT/OT WITH PATIENT. INFORMED HER CLINIC WAS CONTACTED AND HER THERAPY SHOULD BE 100% COVERED. STATES SHE IS AGREEABLE TO DO OUTPATIENT THERAPY AT [facility] BECAUSE SHE DOES WANT MOBILITY BACK IN HER ARM. WILL SEND OUTPATIENT ORDERS WHEN SHE IS READY FOR DC.
--- NOTE | 2025-06-10 12:12 | NUR ---
PT REPORTS HER L FOOT IS STARTING TO HURT. PT REFUSED TYLENOL D/T HER REPORTING IT RAISES HER BS. NO OTHER NEEDS AT THIS TIME, CALL LIGHT IN REACH, SIGNIFICANT OTHER AT BEDSIDE.
[2025-06-10] MEDS ORDERED: OXYCODONE HCL 5 MG TAB PO PRN (13:00)
--- NOTE | 2025-06-10 13:08 | NUR ---
PATIENT IN BED AT THIS TIME. SUPERVISORY HISTORIAN CHARTED VITALS AND I&O'S. CALL LIGHT WITHIN REACH, NO FURTHER NEEDS.
--- NOTE | 2025-06-10 13:16 | NUR ---
VERIFIED PCP WITH PATIENT. HER PCP IS QUEENIE SYKES NP, AT [facility].
[2025-06-10] MEDS ORDERED: ERTAPENEM SODIUM 1 GM VIAL IV SCH (13:57)
[2025-06-10] MEDS ORDERED: MAGNESIUM SULFATE 50 ML IV ONE (14:12)
[2025-06-10] MEDS ORDERED: ERTAPENEM SODIUM 1 GM in SODIUM CHLORIDE 0.9% 50 ML IV SCH (14:30)
--- NOTE | 2025-06-10 16:34 | NUR ---
PATIENT TOOK A SHOWER AND WASHED HER HAIR. PATIENT DID EVERYTHING HERSELF EXCEPT WASH HER BACK. NEW GOWN AND SOCKS. PATIENT ALSO PUT LOTION ON HER ARMS. PATIENT IS BACK IN BED.
--- NOTE | 2025-06-10 18:12 | NUR ---
PATIENT IN BED AT THIS TIME. ELECTRONEURODIAGNOSTIC TECHNICIAN CHARTED VITALS AND I&O'S. CALL LIGHT WITHIN REACH, NO FURTHER NEEDS.
--- NOTE | 2025-06-10 19:15 | NUR ---
REPORT RECEIVED FROM MELBA CASEY AND MELBA RICHARDS. PT LAYING IN BED, RESPIRATIONS EVEN AND UNLABORED. IV FLUID INFUSING WELL. DENIES NEEDS AT THE MOMENT. CALL LIGHT AND PERSONAL BELONGINGS IN REACH.
--- NOTE | 2025-06-10 19:54 | NUR ---
CALL LIGHT ANSWERED. PT NEEDED TO USE BATHROOM. CONTROLS DESIGN ENGINEER 1PA WITH FWW TO BATHROOM. PT VOIDED AND ASSISTED BACK TO BED. VITALS AND I&O OBTAINED. PT REQUESTING PAIN MED. RN NOTIFIED. PT STATES NO FURTHER NEEDS AT THIS TIME. CALL LIGHT WITHIN REACH.
--- NOTE | 2025-06-10 22:28 | NUR ---
PT STATED SHE WANTED TO GO FOR A WALK. PAIL BAILER SBA WITH FWW FOR 2 LAPS AROUND UNIT. PT NOW BACK IN BED. PT STATES NO FURTHER NEEDS AT THIS TIME. CALL LIGHT WITHIN REACH.
--- NOTE | 2025-06-10 23:08 | NUR ---
PT LAYING IN BED, RESPIRATIONS EVEN AND UNLABORED. FULL ASSESSMENT DONE. DUE MEDICATIONS GIVEN. PT WALKED TO THE BATHROOM SBA WITH FWW TOLERATED WELL. DENIES FURTHER NEEDS. CALL LIGHT AND PERSONAL BELONGINGS WITHIN REACH.
[2025-06-11] VITALS (10 sets, daily range): BP systolic 143–149; BP diastolic 63–96
--- NOTE | 2025-06-11 00:14 | NUR ---
PT RESTING IN BED. RESPIRATIONS EVEN AND UNLABORED. SP02 AT 94% ON RA. IV INFUSING WELL. NO APPARENT NEEDS NOTED AT THIS TIME. CALL LIGHT AND PERSONAL BELONGINGS WITHIN REACH.
--- NOTE | 2025-06-11 01:11 | NUR ---
CALL LIGHT ANSWERED. PT NEEDED TO USE BATHROOM. LOBBY ATTENDANT 1PA WITH FWW TO BATHROOM. PT VOIDED AND ASSISTED BACK TO BED. PT STATES NO FURTHER NEEDS AT THIS TIME. CALL LIGHT WITHIN REACH.
--- NOTE | 2025-06-11 01:51 | NUR ---
PT LAYING IN BED, AWAKE, USING HER PHONE. RESPIRATIONS EVEN AND UNLABORED. SATS AT 94% ON RA. DENIES NEEDS AT THE MOMENT. CALL LIGHT AND PERSONAL BELONGINGS WITHIN REACH.
--- NOTE | 2025-06-11 04:42 | NUR ---
PT SLEEPING IN BED, RESPIRATIONS EVEN AND UNLABORED. SATS AT 94% ON RA. NO APPARENT NEEDS AT THIS TIME. CALL LIGHT AND PERSONAL BELONGINGS IN REACH.
--- NOTE | 2025-06-11 05:08 | NUR ---
CALL LIGHT ANSWERED. PT NEEDED TO USE BATHROOM. REAL TIME TRADER 1PA WITH FWW TO BATHROOM. PT VOIDED AND ASSISTED BACK TO BED. PT GOWN CHANGED UPON PT REQUEST. VITALS AND I&O OBTAINED. PT STATES NO FURTHER NEEDS AT THIS TIME. CALL LIGHT WITHIN REACH AND RN IN ROOM.
[2025-06-11 05:33] LABS: MCH 29.4 PG (25.6-32.2); MCHC 33.7 g/dL (32.2-35.5); MCV 87.4 fL (79.4-94.8); RBC 3.26 M/uL (3.93-5.22)
[2025-06-11 05:44] LABS: BANDS, MANUAL DIFF 1; EOSINOPHILS, MANUAL DIFF 3; LYMPHOCYTES, MANUAL DIFF 23; MONOCYTES, MANUAL DIFF 11; NEUTROPHILS, MANUAL DIFF 62
--- NOTE | 2025-06-11 05:47 | NUR ---
PT LAYING IN BED. RESPIRATIONS EVEN AND UNLABORED. DENIES NEEDS AT THE MOMENT. CALL LIGHT AND PERSONAL BELONGINGS IN REACH.
[2025-06-11 05:48] LABS: ALT (SGPT) 21.0 U/L (14-59); AST (SGOT) 29.0 U/L (15-37); GLOMERULAR FILTRATION RATE,EST 89.0 mL/min (>60); PROTEIN, TOTAL 6.5 g/dL (6.4-8.2); UREA NITROGEN 6.0 mg/dL (7-18)
--- NOTE | 2025-06-11 06:37 | NUR ---
BATHROOM CALL LIGHT ANSWERED. PT ASSISTED BACK TO BED. PT GIVEN TEA UPON REQUEST. PT STATES NO FURTHER NEEDS AT THIS TIME. CALL LIGHT WITHIN REACH.
--- NOTE | 2025-06-11 07:20 | NUR ---
RECEIVED REPORT FROM MELBA FIGUEROA. PATIENT SITTING UP IN BED ON PHONE, REQUESTS NO NEEDS. CALL LIGHT IN REACH, WHITEBOARD UPDATED.
[2025-06-11] MEDS ORDERED: POTASSIUM CHLORIDE 10 MEQ TABCR PO ONE (09:00)
[2025-06-11] MEDS ORDERED: MAGNESIUM SULFATE 2 GM/50 ML BAG IV SCH (09:00)
--- NOTE | 2025-06-11 09:25 | NUR ---
PT CALL LIGHT ON, REQUESTING SOMETHING FOR HER FOOT PAIN, RATES IT 02/26. PRN MEDS GIVEN - SEE MAR. OFFERED TYLENOL BUT WANTED SOMETHING MORE. PT DENIES ANY NEEDS, CALL LIGHT WITHIN REACH. PT REMAINS SITTING UP IN CHAIR AT THIS TIME.
--- NOTE | 2025-06-11 10:00 | NUR ---
Spoke with Gale. She is considering her amputation and the amount to be amputated. She lives with her boyfriend and his granddaughter with 2 small children. She states the house is not a place to go following surgery as it is unclean. She also states the toddlers stomp on her feet. I let her know, I will update Dr. Ott and Dr. Akhtar.
--- NOTE | 2025-06-11 10:43 | NUR ---
PT CURRENTLY AMBULATING AROUND NURSES STATION WITH WEIGHT LOSS CONSULTANT AT SIDE. NO NEEDS AT THIS TIME.
--- NOTE | 2025-06-11 11:05 | NUR ---
2ND DOSE OF MAG STARTED FOR PATIENT, PT REQUESTS NO NEEDS AT THIS TIME. CALL LIGHT IN REACH.
--- NOTE | 2025-06-11 13:30 | NUR ---
PT UP TO BATHROOM, REPORTS WANTING TO SIT LONGER, TOLD PT TO PULL CALL LIGHT WHEN READY. NO OTHER NEEDS AT THIS TIME.
--- NOTE | 2025-06-11 14:15 | NUR ---
Dr. Ott and Dr. Akhtar stopped by my office. They has discussed surgery with Tahirtamika. She would like an amputation of the metatarsals and per Dr. Akhtar he cannot complete as pts albumin is too low. We discussed options as he plans on discharging this pt and giving her time to increase her albumin and take antibiotics. state concern as they would like her to go to a SNF on dc. I updated them this pt has 30 days from discharge to admit to a SNF as she has completed a 4 night IP stay. He just needs to notify CM when this pt returns he would like her to admit to a SNF following surgery. Pt can dc to a SNF as long as her surgery is within 30 days of her dc from the hospital.
--- NOTE | 2025-06-11 14:23 | NUR ---
Pt scheduled to see Dr Akhtar 06/16/25 at 10:30 per his request for fu.
--- NOTE | 2025-06-11 15:37 | NUR ---
PT REPORTS PAIN IN ABDOMEN, PAIN MEDS GIVEN PER ORDER. HEAT PACK GIVEN, SUGAR FREE ICE CREAM GIVEN, NO OTHER NEEDS REPORTED. CALL LIGHT IN REACH.
--- NOTE | 2025-06-11 19:05 | NUR ---
REPORT RECEIVED FROM USHA RN AND MELBA CASEY. PATIENT RESTING ON LEFT SIDE WITH EYE MASK ON, RESPIRATIONS EVEN AND UNLABORED. IVF INFUSING WITHOUT DIFFICULTY. NO NEEDS IDENTIFIED AT THIS TIME. CALL LIGHT IN REACH.
--- NOTE | 2025-06-11 20:38 | NUR ---
PT CALLED FOR BR USE, ASSISTED OOB TO BR AND BACK TO BED. HELP WITH PM CARES, FACE WASHED, MICHAEL CARE, VITALS DONE. CALL LIIGHT IN REACH, NO NEEDS AT THIS TIME.
--- NOTE | 2025-06-11 21:05 | NUR ---
SCHEDULED MEDICATIONS GIVEN WITHOUT COMPLICATIONS. ASSESSMENT COMPLETED. IVF INFUSING WITHOUGH DIFFICULTY. PATIENT LAYING IN BED ON BACK AWAKE AND ALERT. FRESH ICE WATER GIVEN. REPOSITIONED IN BED. PATIENT DENIES NEEDS AT THIS TIME. CALL LIGHT AND BELONGINGS IN REACH.
--- NOTE | 2025-06-11 21:49 | NUR ---
CALL LIGHT ANSWERED. PT WANTED TO GO FOR A WALK. CRIMINOLOGY TEACHER SBA WITH FWW. PT WALKED 1 LAP AROUND UNIT. PT BACK IN BED AND REQUESTING A PAIN PILL. RN NOTIFIED. PT STATES NO FURTHER NEEDS AT THIS TIME. CALL LIGHT WITHIN REACH.
--- NOTE | 2025-06-11 23:45 | NUR ---
PATIENT RESTING IN BED LAYING ON LEFT SIDE WTIH EYE MASK ON, RESPIRATIONS EVEN AND UNLABORED. IVF RUNNING WITHOUT DIFFICULTY. NO NEEDS IDENTIFIED AT THIS TIME. CALL LIGHT IN REACH.
[2025-06-12] VITALS (7 sets, daily range): BP systolic 144–166; BP diastolic 69–82
--- NOTE | 2025-06-12 00:05 | NUR ---
CALL LIGHT ANSWERED, PATIENT UP TO RESTROOM. AMBULATED WITH FWW, BRIEF CHANGED. BACK TO BED WITHOUT DIFFICULTY, CPOX AT BEDSIDE. NO FURTHER NEEDS, CALL LIGHT IN REACH
--- NOTE | 2025-06-12 01:40 | NUR ---
PATIENT RESTING WITH EYES CLOSED, RESPIRATIONS EVEN AND UNLABORED. NEW IVF BAG HUNG PER ORDER. INFUSING WITHOUT DIFFICULTY. NO NEEDS, CALL LIGHT IN REACH
--- NOTE | 2025-06-12 03:08 | NUR ---
CALL LIGHT ANSWERED, PATIENT UP TO RESTROOM USING FWW AND MINIMAL SBA. BACK TO BED WITHOUT DIFFICULTY. IVF INFUSING WITHOUT DIFFICULTY, DENIES FURTHER NEEDS, CALL LIGHT IN REACH
[2025-06-12 05:31] LABS: MCH 28.8 PG (25.6-32.2); MCHC 32.9 g/dL (32.2-35.5); MCV 87.7 fL (79.4-94.8); RBC 3.33 M/uL (3.93-5.22)
--- NOTE | 2025-06-12 05:34 | NUR ---
PATIENT UP TO RESTROOM WITH 1PA FWW. PATIENT STEADY GAIT WITH WALKER. MICHAEL CARE AND NEW BREIF. FOCUSED ASSESSMENT COMPLETED. VS AND I&O'S COMPLETED AND DOCUMENTED. PATIENT REPOSITIONED IN BED. NO NEEDS IDENTIFIED AT THIS TIME. CALL LIGHT IN REACH.
[2025-06-12 05:46] LABS: ALT (SGPT) 19.0 U/L (14-59); AST (SGOT) 20.0 U/L (15-37); GLOMERULAR FILTRATION RATE,EST 96.0 mL/min (>60); PROTEIN, TOTAL 6.4 g/dL (6.4-8.2); UREA NITROGEN 5.0 mg/dL (7-18)
[2025-06-12 05:47] LABS: BASOPHILS, MANUAL DIFF 1; EOSINOPHILS, MANUAL DIFF 3; LYMPHOCYTES, MANUAL DIFF 12; MONOCYTES, MANUAL DIFF 5; NEUTROPHILS, MANUAL DIFF 79
--- NOTE | 2025-06-12 07:05 | NUR ---
REPORT RECIVED FROM MELBA WOLFE AND MELBA ARTIS. PATIENT RESTING IN BED ON HER RIGHT SIDE WITH HER EYES CLOSED. EVEN AND UNLABORED RESPIRATIONS NOTED. WHITE BOARD UPDATED. CALL LIGHT AND PERSONAL BELONGINGS ARE WITHIN REACH.
[2025-06-12] MEDS ORDERED: MAGNESIUM SULFATE 2 GM/50 ML BAG IV SCH (08:00)
--- NOTE | 2025-06-12 08:35 | NUR ---
PATIENT MEDICATED PER EMAR. PATIENT ASSESSMENT COMPLETED. PATIENT IS ALERT AND ORIENTED. PATIENT IV FLUSHED WITH 10ML OF NS, DRESSING IS INTACT. IV FLUIDS, MAG, AND ABX INFUSING PER ORDER. PATIENT ASSESSMENT COMPLETED. PATIENT REFUSED BOWEL MEDS. PATIENT WITHOUT FURTHER NEEDS AT THIS TIME. CALL LIGHT AND PERSONAL BELONGINGS ARE WITHIN REACH.
--- NOTE | 2025-06-12 10:05 | NUR ---
PATIENT MEDICATED PER EMAR. PATIENT ON THE PHONE TALKING, BUT DENIES ANY NEEDS FROM THIS NURSE AT THIS TIME. CALL LIGHT AND PERSONAL BELONGINGS ARE WITHIN REACH.
[2025-06-12] MEDS ORDERED: SALINE LOCK FLUSH 5 ML SYR IV PRN (10:30)
--- NOTE | 2025-06-12 12:17 | NUR ---
PATIENT RESTING IN BED WITH FAMILY AT BEDSIDE. COFFEE CUP PROVIDED PER REQUEST. CALL LIGHT AND PERSONAL BELONGINGS ARE WITHIN REACH. NO FURTHER NEEDS AT THIS TIME.
[2025-06-12] MEDS ORDERED: CULTURELLE1 EACH PO (13:25)
[2025-06-12] MEDS ORDERED: VALIUM5 MG PO (13:28)
--- NOTE | 2025-06-12 13:40 | NUR ---
PATIENT UP WALKING THE HALLS WITH JORDEN WAN
--- NOTE | 2025-06-12 14:10 | NUR ---
PATIENT DISCHARGE INSTRUSTIONS REVIEWED WITH PATIENT. PATIENT IV REMAINS IN PATIENT'S LEFT WRIST PER MD ORDERS DUE TO PATIENT RETURING THIS WEEKEND FOR ABX INFUSIONS. IV WAS FLUSHED WITH 10ML OF NS AND IS SALINE LOCKED WITH CURRO CAPS PLACED. DRESSING IS INTACT. WHITE MESH APPLIED OVER IV SITE AND WRAPPED WITH CURLEX AND SECURED WITH TAPE. PATIENT EDUCATED ON NOT TO MESS WITH IV SITE. PATIENT STATES SHE WANTS TO TAKE A SHOWER WHEN SHE GETS HOME. BAGS AND TAPE PROVIDED TO PATIENT WITH EDUCATION ON HOW TO USE BAGS TO KEEP IV AND DRESSING DRY. PATIENT WITH VERBAL UNDERSTANDING.
--- NOTE | 2025-06-12 14:32 | NUR ---
WOUND CARE COMPLETED PER WOUND CARE ORDER. PATIENT EDUCATED ON CARE AT HOME AND TO NOT UNDRESS WOUND. PATIENT WITH VERBAL UNDERSTANDING. PATIENT SOCK APPLIED AND NON SKID SOCK ONTOP, PER PATIENT REQUEST. JORDEN FRAGOSO IN ROOM ASSISTING PATIENT WITH GETTING DRESSED AND DISCHARGE VITAL SIGNS. PATIENT'S BOYFRIEND HERE TO TAKE PATIENT HOME.
--- NOTE | 2025-06-13 08:16 | NUR ---
RECEIVED CALL FROM LAB THIS MORNING, PATIENT +BLOOD CX, AEROBIC BOTTLE - GRAM NEG RODS; ANAEROBIC BOTTLE GRAM POS RODS. MD NOTIFIED THIS MORNING; AWARE OF OUT IV ABX THERAPY. NO NEW ORDERS.
== END 2025-06-12 14:40 | disposition home or self-care (01) | DRG 638 ==
LOC: ED 06:35 → MS 10:16
PROVIDERS: Family Medicine; ADMIT Internal Medicine; ATTEND Internal Medicine
DX: E11.621 Type 2 diabetes mellitus with foot ulcer (principal); E87.1 Hypo-osmolality and hyponatremia; N39.0 Urinary tract infection, site not specified; R78.81 Bacteremia; Z16.24 Resistance to multiple antibiotics; M86.8X7 Other osteomyelitis, ankle and foot; I24.89 Other forms of acute ischemic heart disease; K59.00 Constipation, unspecified; B96.20 Unspecified Escherichia coli [E. coli] as the cause of diseases classified elsewhere; L97.522 Non-pressure chronic ulcer of other part of left foot with fat layer exposed; E11.40 Type 2 diabetes mellitus with diabetic neuropathy, unspecified; S98.921 Partial traumatic amputation of right foot, level unspecified; M25.775 Osteophyte, left foot; N17.9 Acute kidney failure, unspecified; R11.0 Nausea; M54.50 Low back pain, unspecified; E11.9 Type 2 diabetes mellitus without complications; F12.90 Cannabis use, unspecified, uncomplicated; I10 Essential (primary) hypertension; E87.6 Hypokalemia; E83.42 Hypomagnesemia; Z85.3 Personal history of malignant neoplasm of breast; Z90.49 Acquired absence of other specified parts of digestive tract; Z90.710 Acquired absence of both cervix and uterus; Z89.431 Acquired absence of right foot; Z79.2 Long term (current) use of antibiotics; Z79.4 Long term (current) use of insulin; Z79.899 Other long term (current) drug therapy; Z88.1 Allergy status to other antibiotic agents; Z88.5 Allergy status to narcotic agent; Z88.8 Allergy status to other drugs, medicaments and biological substances; Z91.038 Other insect allergy status
CPT/HCPCS: 36415; 70450; 73630; 74018; 80048; 80053; 81001; 82550; 83036; 83735; 84100; 84443; 84484; 85025; 85651; 86140; 87040; 87070; 87075; 87205; 93005; 93010; 94640; 94762; 97116; 97161; 97530; 97535; A9270; J0692; J0780; J1335; J1650; J1815; J3475; J7030; J7121; J7605

== ENCOUNTER 2025-07-08 07:00 | Day surgery (SDC) | payer MEDICARE, OTHER ==
[~2025-07-08] VITALS: Ht 162.6 cm; Wt 65.0 kg
[~2025-07-08 07:00] MED LIST changes: +CIPROFLOX-DEXA7.5 ML AS; +CLINDAMYCIN PHOSPHATE/D5W 900 MG/50 ML PIGGYBACK IV SCH; +CULTURELLE1 EACH PO; +IBLOOD GLUCOSE TEST STRIP 1 EA TEST VI PRN; +LACTATED RINGER'S 1,000 ML IV SCH; +LIDOCAINE HCL 1% 5 ML SDV INJ ONE; +OXYCODONE HCL5 M3 PO; +VALIUM5 MG PO
[2025-07-08] MEDS ORDERED: LIDOCAINE HCL 2% 20 MG/ML VIAL INJ ONE (07:27)
[2025-07-08] MEDS ORDERED: Ropivacaine HCl 0.5% 30 ML VIAL ONE (07:27)
[2025-07-08 07:29] VITALS: BP 130/52
[2025-07-08] MEDS ORDERED: DEXAMETHASONE SOD PHOS 10 MG/ML VIAL ONE (07:59)
[2025-07-08] MEDS ORDERED: HYDROmorphone HCL 1 MG/ML SYR IV PRN (09:00)
[2025-07-08] MEDS ORDERED: PROCHLORPERAZINE EDISYLATE 10 MG/2 ML VIAL IV PRN (09:00)
[2025-07-08] MEDS ORDERED: NALOXONE HCL 0.4 MG SYR IV PRN (09:00)
[2025-07-08] MEDS ORDERED: IBLOOD GLUCOSE TEST STRIP 1 EA TEST VI PRN (09:00)
[2025-07-08] MEDS ORDERED: fentaNYL citrate 50 MCG/ML SDV IV PRN (09:00)
--- NOTE | 2025-07-08 10:03 | NUR ---
07/08/25 Zhou3 Thelma Lugo LE 0952: PT ARRIVES TO PACU REACTIVE. REPORT RECEIVED FROM MANAGER PRODUCE AND TAILINGS WORKER. LE 0955: PT WAKES UP CALLING OUT FOR TAILINGS WORKER. SHE IS REPORTING NAUSEA, FEELING LIKE SHE GOING TO THROW UP. SHE IS DRY HEAVING. BP IS LOW. TAILINGS WORKER GIVES MEDICATION FOR BP. OXYGEN IS TAKEN OF PT. SHE BEGINS TO DRY HEAVE.
[2025-07-08 10:45] VITALS: BP 142/64
[2025-07-08 11:45] VITALS: BP 131/48
--- NOTE | 2025-07-08 14:02 | NUR ---
1043: PATIENT BACK IN DAY SURGERY ROOM FROM PACU. DENIES PAIN. VS CHECKED. LEFT FOOT DRESSING CLEAN, DRY AND INTACT. LEFT FOOT ELEVATED ON PILLOW. ICE PACK TO LEFT FOOT. IV SITE WNL. TOLERATING WATER. GIVEN TEA AND CRACKERS. SCD TO RIGHT LEG ONLY. CALL LIGHT WITHIN REACH. 1135: DISCHARGE INSTRUCTIONS GIVEN TO PATIENT. COPIES OF DC INSTRUCTIONS PLACED IN PACKET FOR [place] [place]. 1140: IV DC'D WNL. TIP INTACT. DRESSING APPLIED. PATIENT ASSISTED TO GET DRESSED. 1152: PATIENT ASSISTED TO TRANSFER IN TO WHEELCHAIR FROM [place] WITH 2 PERSON ASSIST. PATIENT DISCHARGED TO [place] VIA WHEELCHAIR WITH [facility].
--- NOTE | 2025-07-09 15:05 | OR ---
[facility] [address] [place] [address] Signed DATE OF OPERATION: 07/08/2025 SURGEON: Donya Akhtar DPM PREOPERATIVE DIAGNOSES: 1. Ulceration, left second digit. 2. Diabetic foot with plantarflexed metatarsals. POSTOPERATIVE DIAGNOSIS: 1. Ulceration, left second digit. 2. Diabetic foot with plantarflexed metatarsals. PROCEDURE: Transmetatarsal amputation. RAKER BUFFING WHEEL: Leroy Crawford DPM NURSE SALES ENABLEMENT CONSULTANT: Arron Gonzalez. ANESTHESIA: Regional popliteal block with 5 mL of local anesthesia consisting of 2% lidocaine plain and 0.5% ropivacaine plain. ESTIMATED BLOOD LOSS: Less than 5 mL or minimal. HEMOSTASIS: With an ankle tourniquet, left ankle. MATERIALS UTILIZED: Bone wax, 3-0 nylon. PROCEDURE IN DETAIL: The patient was brought into the operating room, placed upon the operating table in the supine position. Following IV sedation, the above anesthesia was administered about the patient's medial left foot covering the saphenous vein region. Left foot was then scrubbed, prepped and draped in usual sterile technique. An Esmarch bandage was then utilized to exsanguinate the patient's left foot and then left wrapped around the ankle Electronically Signed By: DONYA AKHTAR DPM 07/09/25 1505 PATIENT NAME: MEGAN GONZALEZ OPERATIVE REPORT DATE OF : 57 REPORT #: [id number] PHYSICIAN: DONYA AKHTAR DPM PCP: [facility] REPORT IS CONFIDENTIAL AND NOT TO BE RELEASED WITHOUT AUTHORIZATION [facility] [address] [place], [place] [address] Signed to act as a tourniquet. Attention was then directed to the dorsal aspect of the patient's left foot where a transverse incision extending from the dorsal first metatarsal through the fifth metatarsal was performed at the level of the mid metatarsal region. On the medial and lateral aspects, there was a slight curve proximally. Similar incision was then performed along the plantar aspect of the foot, however, at this time a little further distally to provide a flap. The incision was deepened utilizing #10 blade down to bone. Soft tissue structures such as tendon were severed and lysed down to the level of the mid metatarsals. Mendieta elevator was then utilized to fish back back soft tissue from the shaft of the metatarsals. The proximal metaphyseal region of the first metatarsal was identified and an osteotomy was performed of the first metatarsal just distal to metaphyseal region. Next, just distal to the this osteotomy, a through and through osteotomy was performed of the second metatarsal. A little more proximal, transverse osteotomy of the third and then the forth and then the fifth metatarsals until all the metatarsals had a complete transverse osteotomy performed in a parabola type shape. Sharp edges were then smoothed utilizing a rongeur and also the sagittal saw. #10 blade was then utilized to resect the remaining attachments to the distal foot and the distal foot from the metatarsal heads distalwards and excised and removed from the operative field. Attention was then directed to the soft tissue; tendon and muscle structures of the plantar flap were debulked and avascular tissue such as tendon and ligament and fascia were also resected. The plantar flap was brought upwards and reapproximated to the dorsal flap and found to be good configuration. The area was flushed with copious amounts of sterile normal saline. Bone wax was applied to the distal aspects of the metatarsals. The plantar skin flap was again brought up, reapproximated and 3-0 nylon was utilized to reapproximate and close the integument utilizing horizontal mattress, vertical mattress and simple followed by a secondary suture line of the continuous interlocking suture across the entire surgical site. Steri-Strips were then applied. The surgical site was then dressed with silver foam dressing followed by fluff gauze, ABD pad, rolled gauze, Kerlix and Coban. The ankle tourniquet was removed and the patient was escorted to the recovery room with vital signs stable. The patient had tolerated both procedures and the anesthesia well. The patient was discharged to [facility] for recovery and physical rehabilitation as well as wound care. Donya Akhtar DPM /MODL /[id number] Electronically Signed By: DONYA AKHTAR DPM 07/09/25 1505 PATIENT NAME: MEGAN GONZALEZ OPERATIVE REPORT DATE OF : 57 REPORT #: [id number] PHYSICIAN: DONYA AKHTAR DPM PCP: [facility] REPORT IS CONFIDENTIAL AND NOT TO BE RELEASED WITHOUT AUTHORIZATION [address] [address] Signed Copies: ~ Electronically Signed By: DONYA AKHTAR DPM 07/09/25 1505 PATIENT NAME: MEGAN GONZALEZ OPERATIVE REPORT DATE OF : 57 REPORT #: [id number] PHYSICIAN: DONYA AKHTAR DPM PCP: [facility] SY[facility] REPORT IS CONFIDENTIAL AND NOT TO BE RELEASED WITHOUT AUTHORIZATION
--- NOTE | 2025-07-13 14:22 | PATH ---
[facility] [address], [place] [address] Signed SPECIMEN(S): A LEFT FOREFOOT SPECIMEN SOURCE: A. LEFT FOREFOOT CLINICAL HISTORY: Chronic ulcer with skip breakdown FINAL PATHOLOGIC DIAGNOSIS: Left forefoot, amputation: - Distal bone and soft tissue with ulceration, soft tissue mummification, soft tissue abscess, and acute osteomyelitis. - Proximal bone and soft tissue viable with no osteomyelitis or significant acute inflammation identified. - Separate fragments of muscle, tendon, and bone, viable with ischemic change. No osteomyelitis identified. [facility] MICROSCOPIC EXAMINATION: Histologic sections of all submitted blocks are examined by light microscopy. These findings, together with the gross examination, support the pathologic diagnosis. GROSS DESCRIPTION: The specimen, labeled and designated "Fiorella Gonzalez, left forefoot per requisition," is received in formalin and consists of a 9.6 x 8.8 x 4.1 cm left forefoot with amputation through the metatarsal bones. The skin is harrison with 4 digits present (2nd through 5th digit) and intact toenail of the 3rd through 5th digit. The first digit is surgically absent and there is a 3.5 x 0.8 cm area of ulceration present. The underlying bone is firm and difficult to cut through with a scalpel. Additionally on the second digit there is a 2.8 x 2 cm area of ulceration on the distal tip with absence of the toenail. The underlying bone is firm to capable been cut through with a scalpel. Both areas of ulceration are greater than 4 cm away from the skin and soft tissue margin. The remainder of the skin shows epithelial sloughing but is otherwise unremarkable. The bones at the amputation margin are firm and homogeneous. The bone margins are subsequently inked as follows: Second digit�black, third digit�blue fourth digit�green, fifth digit�orange, first digit uninked. PATIENT NAME: MEGAN GONZALEZ PATHOLOGY DATE OF : 57 REPORT #: [id number] PHYSICIAN: MASTER PATHOLOGY PCP: QUEENIE SYKES REPORT IS CONFIDENTIAL AND NOT TO BE RELEASED WITHOUT AUTHORIZATION [facility] [address], [place] [address] Signed Within the container there is a 7.1 x 6.5 x 1.4 cm aggregate of brown muscle and harriosn tendon. Within this aggregate there is a 1.2 x 0.8 x 0.4 cm portion of unoriented and undesignated bone. The bone is firm and homogeneous. Landscape Manager sections are submitted as follows: Cassette Summary: (A1) first digit with area of ulceration and underlying bone, decal in decal stat (A2) second digit area of ulceration with underlying bone, decal in decal stat; skin and soft tissue margin, shave (A3) additional portion of bone with portion of muscle, decaled in decal stat (A4) first metatarsal margin, decal in decal stat (A5) 2nd, 3rd, 4th, and 5th metatarsal margin, decal in decal stat AA (under the direct supervision of a pathologist) The Gross Description was prepared using a voice recognition system. The report was reviewed for accuracy; however, sound-alike word errors, addition and/or deletions may occur. If there is any question about this report, please contact Client Services. ADDITIONAL NOTES: Immunohistochemical and/or in situ hybridization studies if performed in this case included appropriate positive controls that reacted as expected. This test was developed and its performance characteristics determined by [facility]. It has not been cleared or approved by the U.S. Food and Drug Administration. The FDA has determined that such clearance or approval is not necessary. This test is used for clinical purposes. It should not be regarded as investigational or for research. [facility] is certified under the Clinical Laboratory Improvement Amendments of 1988 (CLIA) as qualified to perform high complexity clinical laboratory testing. PERFORMING LABORATORY: Technical component was performed by [facility], [address] [place] [id number] (CLIA# [id number]). Professional interpretation was performed by [facility], [address] [place] [id number] (CLIA#: [id number]). Diagnostician: Robert London MD Pathologist PATIENT NAME: MEGAN GONZALEZ PATHOLOGY DATE OF : 57 REPORT #: [id number] PHYSICIAN: MASTER PATHOLOGY PCP: QUEENIE SYKES REPORT IS CONFIDENTIAL AND NOT TO BE RELEASED WITHOUT AUTHORIZATION [facility] [address] [place] [address] [place] [address] Signed Electronically Signed 07/13/2025 Copies: ~ PATIENT NAME: MEGAN GONZALEZ PATHOLOGY DATE OF : 57 REPORT #: [id number] PHYSICIAN: MASTER PATHOLOGY PCP: QUEENIE SYKES REPORT IS CONFIDENTIAL AND NOT TO BE RELEASED WITHOUT AUTHORIZATION
== END 2025-07-08 11:52 ==
LOC: DS 07:00
PROVIDERS: ATTEND Podiatrist Foot & Ankle Surgery
PROC: 0Y6N0ZB Detachment at Left Foot, Partial 2nd Ray, Open Approach (ICD-10-PCS; 2025-07-08)
PROC: 0Y6N0ZC Detachment at Left Foot, Partial 3rd Ray, Open Approach (ICD-10-PCS; 2025-07-08)
PROC: 0Y6N0ZD Detachment at Left Foot, Partial 4th Ray, Open Approach (ICD-10-PCS; 2025-07-08)
PROC: 0Y6N0ZF Detachment at Left Foot, Partial 5th Ray, Open Approach (ICD-10-PCS; 2025-07-08)
PROC: 0Y6N0Z9 Detachment at Left Foot, Partial 1st Ray, Open Approach (ICD-10-PCS; principal; 2025-07-08 08:30)
DX: E11.621 Type 2 diabetes mellitus with foot ulcer (principal); L97.521 Non-pressure chronic ulcer of other part of left foot limited to breakdown of skin; M86.8X7 Other osteomyelitis, ankle and foot; L02.612 Cutaneous abscess of left foot; E11.40 Type 2 diabetes mellitus with diabetic neuropathy, unspecified; F17.210 Nicotine dependence, cigarettes, uncomplicated; Z89.412 Acquired absence of left great toe; Z88.8 Allergy status to other drugs, medicaments and biological substances; Z91.030 Bee allergy status; Z88.1 Allergy status to other antibiotic agents; Z91.048 Other nonmedicinal substance allergy status; Z88.5 Allergy status to narcotic agent
CPT/HCPCS: 01480; 64445; 73630; 80053; 88307; 88311; J1100; J2704; J2795; J3490; J7121